=== PATIENT | male | born 1975 | race Caucasian/White ===

== ENCOUNTER 2020-12-14 22:12 | Inpatient (IN) | payer MEDICARE, OTHER ==
[~2020-12-14] VITALS: Ht 175.3 cm; Wt 56.7 kg
[~2020-12-14 22:12] MED LIST: BACTRIM DS TAB1 EACH PO
[2020-12-15 00:34] LABS: HEMOGLOBIN 14.8 gm/dl (14.0-17.5); RED BLOOD COUNT 4.74 M/UL (4.20-5.50)
[2020-12-15 00:49] LABS: BUN/CREATININE RATIO 12 (0-10)
[2020-12-15] MEDS ORDERED: TOPROL XL25 MG PO (10:16)
[2020-12-15] MEDS ORDERED: IBU800 MG PO (10:18)
[2020-12-15] MEDS ORDERED: HYDROXYCHLOROQ200 MG PO (10:18)
[2020-12-15] MEDS ORDERED: OMEPRAZOLE40 MG PO (10:20)
[2020-12-15] MEDS ORDERED: ROBAXIN 750 MG750 MG PO (10:20)
[2020-12-15] MEDS ORDERED: VITAMIN D21250 MCG PO (10:30)
[2020-12-15] MEDS ORDERED: B-125000 MCG/1 PO (10:31)
[2020-12-15] MEDS ORDERED: GABAPENTIN800 MG PO (10:32)
[2020-12-15] MEDS ORDERED: XTAMPZA ER13.5 MG PO (10:33)
[2020-12-15] MEDS ORDERED: PERCOCET 7.5-31 EACH PO (10:34)
[2020-12-16 05:58] LABS: HEMOGLOBIN 13.8 gm/dl (14.0-17.5); RED BLOOD COUNT 4.57 M/UL (4.20-5.50); WHITE BLOOD COUNT 9.8 K/UL (4.5-11.0)
[2020-12-16 06:17] LABS: BUN/CREATININE RATIO 13 (0-10)
[2020-12-16] MEDS ORDERED: HYDROCODON-ACE1 EAC2 PO (15:39)
[2020-12-17 06:15] LABS: WHITE BLOOD COUNT 10.9 K/UL (4.5-11.0)
[2020-12-17 06:19] LABS: HEMOGLOBIN 11.7 gm/dl (14.0-17.5); RED BLOOD COUNT 3.65 M/UL (4.20-5.50)
[2020-12-17 06:41] LABS: BUN/CREATININE RATIO 13 (0-10)
[2020-12-18 04:33] LABS: HEMOGLOBIN 8.9 gm/dl (14.0-17.5); RED BLOOD COUNT 2.85 M/UL (4.20-5.50); WHITE BLOOD COUNT 5.9 K/UL (4.5-11.0)
[2020-12-18 04:35] LABS: BUN/CREATININE RATIO 11 (0-10)
== END 2020-12-18 14:50 | disposition home health service (06) | DRG 480 ==
LOC: ER1 22:12 → M/S 12-15 01:07 → CDU 12-15 01:07 → M/S 12-15 14:48
PROVIDERS: Emergency Medicine; Internal Medicine; ADMIT Internal Medicine
PROC: 0QS806Z Reposition Right Femoral Shaft with Intramedullary Internal Fixation Device, Open Approach (ICD-10-PCS; principal; 2020-12-15)
DX: S72.331A Displaced oblique fracture of shaft of right femur, initial encounter for closed fracture (principal); L89.154 Pressure ulcer of sacral region, stage 4; G82.20 Paraplegia, unspecified; Z68.1 Body mass index [BMI] 19.9 or less, adult; I10 Essential (primary) hypertension; M24.551 Contracture, right hip; Z20.822 Contact with and (suspected) exposure to COVID-19; M24.561 Contracture, right knee; R63.6 Underweight; X50.1XXA Overexertion from prolonged static or awkward postures, initial encounter; Y93.9 Activity, unspecified; Y92.9 Unspecified place or not applicable; Z88.0 Allergy status to penicillin; Z99.3 Dependence on wheelchair; Z88.1 Allergy status to other antibiotic agents; Z87.440 Personal history of urinary (tract) infections; Z98.890 Other specified postprocedural states
CPT/HCPCS: 36415; 71045; 73552; 73590; 76000; 80048; 80053; 83540; 83550; 83735; 83880; 84100; 85025; 85027; 86850; 86900; 86901; 87040; 93005; 94760; 97161; 97166; 99284; A6212; C1713; J0690; J1100; J1170; J1650; J1940; J1956; J2001; J2250; J2370; J2405; J2704; J3010; J7030; J7120; U0002

== ENCOUNTER 2021-01-07 09:02 | Emergency (ER) | payer MEDICARE, OTHER ==
[~2021-01-07 09:02] MED LIST changes: +B-125000 MCG/1 PO; +GABAPENTIN800 MG PO; +HYDROCODON-ACE1 EAC2 PO; +HYDROXYCHLOROQ200 MG PO; +IBU800 MG PO; +OMEPRAZOLE40 MG PO; +PERCOCET 7.5-31 EACH PO; +ROBAXIN 750 MG750 MG PO; +TOPROL XL25 MG PO; +VITAMIN D21250 MCG PO; +XTAMPZA ER13.5 MG PO
[2021-01-07] MEDS ORDERED: VIBRAMYCIN 100100 MG PO (14:26)
== END 2021-01-07 16:55 | disposition home or self-care (01) ==
LOC: ER1 09:02
DX: L03.012 Cellulitis of left finger (principal); I25.10 Atherosclerotic heart disease of native coronary artery without angina pectoris
CPT/HCPCS: 73140; 99283